=== PATIENT | male | born 1960 | race Caucasian/White ===

== ENCOUNTER 2021-03-15 18:31 | Inpatient (IN) | payer OTHER, SELFPAY ==
--- OUTSIDE RECORDS SUMMARY | 2021-03-15 18:33 | XMS REPORT | Continuity of Care Document ---
:1960 Author Organization [facility] t Address [address] [place] [address] Care Team Providers Name Role Phone Keren CHAUDHRY Attending Clinician Problems This patient has no known problems. Allergies, Adverse Reactions, Alerts This patient has no known allergies or adverse reactions. Medications This patient has no known medications. Procedures This patient has no known procedures. Encounters Start End Encounter Admission Attending Care Care Encounter Source Date/Time Date/Time Type Type Clinicians Facility Department ID 2021-03-14 2021-03-14 Office [facility] [id number] 09:34:02 11:54:04 Visit [facility] [id number] [facility] [id number] Results This patient has no known results.
[2021-03-15 20:17] LABS: Absolute Lymphocytes (CBC) 1.2 K/uL (0.7-4.9); Basophils % 0.5 % (0-1.3); Hematocrit 33.4 % (39.6-49.0); Lymphocytes % 10.3 % (15.3-44.8)
[2021-03-15 20:28] LABS: Protime INR 1.82
[2021-03-15] MEDS ORDERED: NA CHLORIDE 0.9% 2,000 ML ONE (20:31)
[2021-03-15] MEDS ORDERED: THIAMINE 200 MG/2 ML INJ ONE (20:31)
[2021-03-15] MEDS ORDERED: MULTIVITAMINS 10 ML VIAL (INJ) IV ONE (20:32)
[2021-03-15] MEDS ORDERED: FOLIC ACID 5 MG/ML VIAL ONE (20:33)
[2021-03-15 20:38] LABS: ALT/SGPT 29 U/L (12-78); AST/SGOT 41 U/L (15-37); Albumin 2.5 g/dL (3.4-5.0); Alkaline Phosphatase 112 U/L (45-117); BUN Blood Urea Nitrogen 8 mg/dL (7-18); Bicarbonate 30 mmol/L (21-32); Bilirubin Direct 1.9 mg/dL (0-0.2); Bilirubin Total 4.9 mg/dL (0.2-1.0); Glucose Level 178 mg/dL (74-106); NT PRO-BNP 194 pg/mL (<125); Potassium 3.3 mmol/L (3.5-5.1); Protein, Total 7.7 g/dL (6.4-8.2); Sodium Level 138 mmol/L (136-145); Troponin (Emerg Dept Use Only) < 0.02 ng/mL (0.0-0.045)
--- NOTE | 2021-03-15 20:39 | RAD REPORT ---
EXAM DESCRIPTION: USExtrem Venous W Compress Bil03/15/2021 8:30 pm CLINICAL HISTORY: Leg pain COMPARISON: 2017 FINDINGS: The common femoral, superficial femoral, popliteal and posterior tibial veins bilaterally are compressible and demonstrate augmentation. Doppler demonstrates good flow. IMPRESSION: No evidence of deep venous thrombosis involving either lower extremity.
[2021-03-15 21:19] LABS: Platelet Estimate ADEQ
[2021-03-15 21:20] LABS: Blood Morphology Comment NOTED (NOT SEEN); Macrocytosis 1+
--- NOTE | 2021-03-15 21:34 | RAD REPORT ---
EXAM DESCRIPTION: CT - Head C Spine Edmar Thomas - 03/15/2021 9:09 pm CLINICAL HISTORY: Head and neck injury with chest and abdominal pain status post fall. Head and neck pain . TECHNIQUE: Computed axial tomography of the head and cervical spine was obtained Computed axial tomography of the chest, abdomen and pelvis was obtained. 100 cc Isovue-300 was given intravenously coronal and sagittal reconstruction was performed. All CT scans are performed using dose optimization technique as appropriate and may include automated exposure control or mA/KV adjustment according to patient size. COMPARISON: None FINDINGS: An intracranial bleed is not seen. The ventricles are normal in caliber. An extra-axial fl uid collection is not noted. A cervical fracture is not seen. No dislocation is seen. Mild anterior subluxation C4 on C5. Mild pos terior subluxation C5 on C6. Moderate spondylosis involves mid and distal cervical spine. A mediastinal hematoma is not noted. A pleural effusion is not present. A lung contusion is not seen. Pulsation artifact limits the evaluation of the ascending thoracic aorta. The proximal ascending aort a appears to measure 4.9 AP diameter. The liver, spleen, pancreas, adrenals, kidneys and bladder do not demonstrate a traumatic injury. . IMPRESSION: 1. No acute intracranial abnormality is seen 2. A cervical fracture is not visualized. If the patient continues have symptoms to suggest intracran ial/spinal cord pathology then MRI would be recommended. 3. No traumatic injury involving the chest, abdomen or pelvis is seen. 4. Proximal thoracic aorta appears to measure 4.9 centimeters. It is uncertain if this is an accurate measurement secondary to pulsation artifact. It is recommended that the patient have a followup unen hanced CT scan of the chest to confirm if this is the size of the aneurysm
--- NOTE | 2021-03-15 21:35 | RAD REPORT ---
EXAM DESCRIPTION: RAD - Hip Left 2 View - 03/15/2021 9:22 pm CLINICAL HISTORY: Left hip pain status post injury FINDINGS: No fracture or dislocation is seen.
--- NOTE | 2021-03-15 21:35 | RAD REPORT ---
EXAM DESCRIPTION: RAD - Pelvis - 03/15/2021 9:22 pm CLINICAL HISTORY: Pelvic pain status post injury FINDINGS: No fracture or dislocation is seen. Intramedullary evgeny has been placed into the right femur
--- NOTE | 2021-03-15 21:36 | RAD REPORT ---
EXAM DESCRIPTION: Lori Single View03/15/2021 8:07 pm CLINICAL HISTORY: Chest pain COMPARISON: none FINDINGS: The lungs appear clear of acute infiltrate. The heart is normal size. Old left rib fractures IMPRESSION: No acute abnormalities displayed
[2021-03-15 22:08] LABS: Urine Blood Trace-lysed (Negative); Urine Glucose Negative (Negative); Urine Protein Negative (Negative); Urine Specific Gravity 1.015 (1.005-1.030)
[2021-03-15] MEDS ORDERED: POTASSIUM 25 MEQ EFFERV TAB ONE (22:20)
--- NOTE | 2021-03-15 23:31 | ER ---
Nurse's Notes [facility] Name: Hank Musa Age: 60 yrs Sex: Male : 1960 Arrival Date: 03/15/2021 Time: 18:34 Bed 18 Private MD: Diagnosis: Weakness;Repeated falls;Hypokalemia;Alcohol abuse;Superficial injury of head Presentation: 03/15 18:41 Chief complaint: Spouse and/or significant other states: last night he fell head first tw2 on the left side of his head and he has just gone down hill since then. he is inbetween dx. 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 he is unsteady cant stand, extremely dizzy. he sleeps 18-20 hours a day. not eating or drinking well normally for months now. the last 2 weeks its gone down to a few bites of food a day. pts daughter states drastic personality changes as well and wont communicate with us. states he cant hardly stand today independently. that's why we brought him today. he complains of chest pain that he feels like a truck run him over. Coronavirus screen: At this time, the client does not indicate any symptoms associated with coronavirus-19. Ebola Screen: Patient denies travel to an Ebola-affected area in the 21 days before illness onset. Initial Sepsis Screen: Does the patient meet any 2 criteria? HR > 90 bpm. Yes Does the patient have a suspected source of infection? No. Patient's initial sepsis screen is negative. Risk Assessment: Do you want to hurt yourself or someone else? Patient reports no desire to harm self or others. Onset of symptoms was March 15, 2021. 18:41 Method Of Arrival: Wheelchair tw2 18:41 Acuity: TIRSO 2 tw2 Triage Assessment: 18:47 General: Appears ill, Behavior is quiet. Pain: Complains of pain in left shoulder pain. tw2 Historical: - Allergies: 18:47 No Known Allergies; tw2 - Home Meds: 18:53 sertraline 50 mg oral tab 1 tab once daily [Active]; folic acid 1 mg Oral tab 1 tab tw2 once daily [Active]; hydroxyzine HCl 25 mg Oral tab 1 tab 3 times per day [Active]; ferrous sulfate 325 mg (65 mg iron) Oral tab [Active]; lactulose 10 gram/15 mL (15 mL) Oral soln 30 mL once daily [Active]; hydrochlorothiazide 12.5 mg Oral cap 1 cap once daily [Active]; naltrexone 50 mg oral tab 1 tab once daily [Active]; acetaminophen-codeine 300-15 mg Oral tab 1 tab every 4-6 hours [Active]; - PMHx: 18:47 mesothelioma; basal cell carcinoma; tw2 - PSHx: 18:47 femur sx; arm sx; neck sx; Tonsillectomy; tw2 - Immunization history:: Adult Immunizations. - Social history:: Smoking status: Patient reports use of chewing tobacco. Patient uses states "he went from 2 case of beer a day about a year and a half ago to now he drinks maybe a 6 pack, today he hasnt drank anything". - Family history:: not pertinent. Screenin:00 Abuse screen: Denies threats or abuse. Denies injuries from another. Nutritional wh screening: No deficits noted. Tuberculosis screening: No symptoms or risk factors identified. Fall Risk Fall in past 12 months (25 points). Assessment: 19:30 General: Appears in no apparent distress. Behavior is calm, cooperative. Pain: Denies wh pain. Neuro: Level of Consciousness is awake, alert, obeys commands, Oriented to person, place, time, situation, Promotional Representative are equal bilaterally Weakness Gait is unsteady, Speech is normal, Facial symmetry appears normal, Pupils are PERRLA, Intact Reports weakness. Cardiovascular: Heart tones S1 S2. Respiratory: Airway is patent Respiratory effort is even, unlabored, Respiratory pattern is regular, symmetrical, Breath sounds are clear bilaterally. GI: Abdomen is flat, non-distended. : No signs and/or symptoms were reported regarding the genitourinary system. EENT: No signs and/or symptoms were reported regarding the EENT system. Derm: Skin is intact, is healthy with good turgor, Skin is pink, warm \\T\\ dry. normal. Musculoskeletal: Circulation, motion, and sensation intact. 21:00 Reassessment: Patient appears in no apparent distress at this time. No changes from previously documented assessment. Patient and/or family updated on plan of care and expected duration. Pain level reassessed. Patient is alert, oriented x 3, equal unlabored respirations, skin warm/dry/pink. 22:30 Reassessment: Patient appears in no apparent distress at this time. Patient and/or wh family updated on plan of care and expected duration. Pain level reassessed. Patient is alert, oriented x 3, equal unlabored respirations, skin warm/dry/pink. 03/16 00:00 Reassessment: Patient appears in no apparent distress at this time. Patient and/or wh family updated on plan of care and expected duration. Pain level reassessed. Patient is alert, oriented x 3, equal unlabored respirations, skin warm/dry/pink. Provider at bedside explaining POC need for admit. 01:30 Reassessment: Patient appears in no apparent distress at this time. Patient and/or wh family updated on plan of care and expected duration. Pain level reassessed. Patient is alert, oriented x 3, equal unlabored respirations, skin warm/dry/pink. Vital Signs: 03/15 18:41 BP 90 / 51; Pulse 106; Resp 19; Temp 98.6(O); Pulse Ox 98% on R/A; Weight 68.04 kg (R); tw2 Height 5 ft. 8 in. (172.72 cm); 20:30 BP 101 / 63; Pulse 91; Resp 18; Pulse Ox 97% on R/A; wh 22:00 BP 108 / 75; Pulse 102; Resp 18; Pulse Ox 95% on R/A; wh 23:30 BP 122 / 71; Pulse 98; Resp 18; Pulse Ox 96% on R/A; 03/16 01:00 BP 131 / 74; Pulse 95; Resp 18; Pulse Ox 95% on R/A; 03/15 18:41 Body Mass Index 22.81 (68.04 kg, 172.72 cm) tw2 ED Course: 03/15 18:34 Patient arrived in ED. mr 18:44 Triage completed. tw2 18:49 Arm band placed on. tw2 19:15 Mario Valdes MD is Attending Physician. [facility] 19:48 Valentín Salazar, DEMETRIA is Primary Nurse. 20:00 Patient has correct armband on for positive identification. Placed in gown. Bed in low wh position. Call light in reach. Side rails up X 1. telemetry monitor on. Pulse ox on. NIBP on. 20:00 No provider procedures requiring assistance completed. Inserted saline lock: 20 gauge wh in right forearm, using aseptic technique. Blood collected. 20:07 XRAY Chest (1 view) In Process Unspecified. EDMS 20:30 US Extremity Venous W Compression Glynn In Process Unspecified. EDMS 21:09 CT Traumagram (Head C Spine CAP W Con) In Process Unspecified. EDMS 21:22 Pelvis XRAY In Process Unspecified. EDMS 21:22 Hip Left 2 View XRAY In Process Unspecified. EDMS 23:14 Aston Lipscomb DO is Hospitalizing Provider. [facility] 03/16 01:52 Patient admitted, IV remains in place. Administered Medications: 03/15 20:40 Drug: Banana Bag - (NS 0.9% 1000 ml, foLIC Acid 1 mg, Thiamine 100 mg, Multivitamin 1 wh amp) Route: IV; Rate: 125 ml/hr; Site: right forearm; 23:17 Follow up: Response: No adverse reaction; IV Status: Infusion continued upon admission 20:40 Drug: NS 0.9% 1000 ml Route: IV; Rate: 1 bolus; Site: right forearm; 23:17 Follow up: Response: No adverse reaction; IV Status: Completed infusion 20:41 Drug: Thiamine 100 mg Route: IV; Rate: per protocol; Site: right forearm; 23:17 Follow up: Response: No adverse reaction; IV Status: Completed infusion 22:07 Drug: Potassium Effervescent Tablet 25 mEq Route: PO; 23:17 Follow up: Response: No adverse reaction 23:47 Drug: Aspirin Chewable Tablet 162 mg Route: PO; 03/16 02:31 Follow up: Response: No adverse reaction Outcome: 03/15 23:31 Decision to Hospitalize by Provider. [facility] 03/16 01:52 Admitted to Med/surg accompanied by nurse, family with patient, via stretcher, room wh 210, with chart, Report called to Eliezer Sabillon RN Condition: stable Instructed on the need for admit. 02:31 Patient left the ED. Signatures: Dispatcher [employer] Mario Lafleur MD MD cha Rivera, Mary mr Wise, Tara, RN RN tw2 Valentín Salazar RN RN
--- NOTE | 2021-03-15 23:31 | EDPHYS ---
Physician Documentation [facility] Name: Hank Musa Age: 60 yrs Sex: Male : 1960 Arrival Date: 03/15/2021 Time: 18:34 Bed 18 Private MD: ED Physician Mario Valdes HPI: 03/15 20:29 This 60 yrs old Male presents to ER via Wheelchair with complaints of Fall yuki Injury, Breathing Difficulty. 20:29 Details of fall: The patient fell from an upright position, while walking. Onset: The yuki symptoms/episode began/occurred 1 day(s) ago. Associated injuries: The patient sustained upper back injury, injury to the low back, injury to the chest. Severity of symptoms: At their worst the symptoms were mild, moderate, in the emergency department the symptoms are unchanged. The patient has not experienced similar symptoms in the past. Historical: - Allergies: 18:47 No Known Allergies; tw2 - Home Meds: 18:53 sertraline 50 mg oral tab 1 tab once daily [Active]; folic acid 1 mg Oral tab 1 tab tw2 once daily [Active]; hydroxyzine HCl 25 mg Oral tab 1 tab 3 times per day [Active]; ferrous sulfate 325 mg (65 mg iron) Oral tab [Active]; lactulose 10 gram/15 mL (15 mL) Oral soln 30 mL once daily [Active]; hydrochlorothiazide 12.5 mg Oral cap 1 cap once daily [Active]; naltrexone 50 mg oral tab 1 tab once daily [Active]; acetaminophen-codeine 300-15 mg Oral tab 1 tab every 4-6 hours [Active]; - PMHx: 18:47 mesothelioma; basal cell carcinoma; tw2 - PSHx: 18:47 femur sx; arm sx; neck sx; Tonsillectomy; tw2 - Immunization history:: Adult Immunizations. - Social history:: Smoking status: Patient reports use of chewing tobacco. Patient uses states "he went from 2 case of beer a day about a year and a half ago to now he drinks maybe a 6 pack, today he hasnt drank anything". - Family history:: not pertinent. ROS: 20:29 Constitutional: Negative for fever, chills, and weight loss, Eyes: Negative for injury, yuki pain, redness, and discharge, ENT: Negative for injury, pain, and discharge, Neck: Negative for injury, pain, and swelling, Cardiovascular: Negative for chest pain, palpitations, and edema, Respiratory: Negative for shortness of breath, cough, wheezing, and pleuritic chest pain, Abdomen/GI: Negative for abdominal pain, nausea, vomiting, diarrhea, and constipation, : Negative for injury, bleeding, discharge, and swelling, Skin: Negative for injury, rash, and discoloration, Neuro: Negative for headache, weakness, numbness, tingling, and seizure. 20:29 Back: Positive for decreased range of motion, pain at rest, pain with movement. 20:29 MS/extremity: Positive for decreased range of motion, pain, tenderness, of the left hip, left inner thigh and left upper thigh. Exam: 20:29 Constitutional: This is a well developed, well nourished patient who is awake, alert, yuki and in no acute distress. Head/Face: Normocephalic, atraumatic. Eyes: Pupils equal round and reactive to light, extra-ocular motions intact. Lids and lashes normal. Conjunctiva and sclera are non-icteric and not injected. Cornea within normal limits. Periorbital areas with no swelling, redness, or edema. ENT: Nares patent. No nasal discharge, no septal abnormalities noted. Tympanic membranes are normal and external auditory canals are clear. Oropharynx with no redness, swelling, or masses, exudates, or evidence of obstruction, uvula midline. Mucous membranes moist. Neck: Trachea midline, no thyromegaly or masses palpated, and no cervical lymphadenopathy. Supple, full range of motion without nuchal rigidity, or vertebral point tenderness. No Meningismus. Chest/axilla: Normal chest wall appearance and motion. Nontender with no deformity. No lesions are appreciated. Cardiovascular: Regular rate and rhythm with a normal S1 and S2. No gallops, murmurs, or rubs. Normal PMI, no JVD. No pulse deficits. Respiratory: Lungs have equal breath sounds bilaterally, clear to auscultation and percussion. No rales, rhonchi or wheezes noted. No increased work of breathing, no retractions or nasal flaring. Abdomen/GI: Soft, non-tender, with normal bowel sounds. No distension or tympany. No guarding or rebound. No evidence of tenderness throughout. Skin: Warm, dry with normal turgor. Normal color with no rashes, no lesions, and no evidence of cellulitis. 20:29 ECG was reviewed by the Attending Physician. 20:29 Back: pain, that is mild, that is moderate, ROM is painful, normal spinal alignment noted, CVA tenderness, is absent, muscle spasm, is not present. Vital Signs: 18:41 BP 90 / 51; Pulse 106; Resp 19; Temp 98.6(O); Pulse Ox 98% on R/A; Weight 68.04 kg (R); tw2 Height 5 ft. 8 in. (172.72 cm); 20:30 BP 101 / 63; Pulse 91; Resp 18; Pulse Ox 97% on R/A; wh 22:00 BP 108 / 75; Pulse 102; Resp 18; Pulse Ox 95% on R/A; wh 23:30 BP 122 / 71; Pulse 98; Resp 18; Pulse Ox 96% on R/A; 03/16 01:00 BP 131 / 74; Pulse 95; Resp 18; Pulse Ox 95% on R/A; 03/15 18:41 Body Mass Index 22.81 (68.04 kg, 172.72 cm) tw2 MDM: 03/15 19:15 Patient medically screened. yuki 20:34 Differential diagnosis: abrasion, closed head injury, contusion, fracture, multiple yuki trauma, sprain, strain. Data reviewed: vital signs, nurses notes, lab test result(s), EKG, radiologic studies, CT scan, plain films. Data interpreted: color television console monitor: rate is 98 beats/min, rhythm is regular, Pulse oximetry: on room air is 98 %. Test interpretation: by ED physician or midlevel provider: ECG, plain radiologic studies. Counseling: I had a detailed discussion with the patient and/or guardian regarding: the historical points, exam findings, and any diagnostic results supporting the discharge/admit diagnosis, lab results, radiology results. 03/15 19:52 Order name: Basic Metabolic Panel 03/15 19:52 Order name: CBC with Diff 03/15 19:52 Order name: LFT's 03/15 19:52 Order name: Magnesium; Complete Time: 21:20 03/15 19:52 Order name: NT PRO-BNP; Complete Time: 21:20 06/10 19:52 Order name: PT-INR; Complete Time: 21:20 03/15 19:52 Order name: Troponin (emerg Dept Use Only); Complete Time: 21:20 03/15 19:53 Order name: Basic Metabolic Panel; Complete Time: 20:39 [facility] 03/15 19:53 Order name: CBC with Automated Diff; Complete Time: 21:35 [facility] 03/15 19:53 Order name: Liver (Hepatic) Function; Complete Time: 20:39 [facility] 10 20:20 Order name: Manual Differential; Complete Time: 21:35 [facility] 03/15 22:08 Order name: Urine Dipstick-Ancillary [facility] 03/15 22:44 Order name: SARS-COV-2 RT PCR; Complete Time: 22:53 [facility] 03/15 19:52 Order name: XRAY Chest (1 view); Complete Time: 21:45 03/15 19:52 Order name: EKG; Complete Time: :53 03/15 19:52 Order name: Cardiac monitoring; Complete Time: :53 03/15 19:52 Order name: EKG - Nurse/Tech; Complete Time: :53 03/15 19:52 Order name: IV Saline Lock; Complete Time: :53 03/15 20:03 Order name: US Extremity Venous W Compression Glynn; Complete Time: 21:20 [facility] 03/15 20:03 Order name: CT Traumagram (Head C Spine CAP W Con); Complete Time: 21:35 [facility] 03/15 20:28 Order name: Pelvis XRAY; Complete Time: 21:45 [facility] 03/15 20:28 Order name: Hip Left 2 View XRAY; Complete Time: 21:45 [facility] 03/15 23:31 Order name: AMMONIA [facility] 03/15 23:32 Order name: Ammonia [facility] 03/15 19:52 Order name: Labs collected and sent; Complete Time: :53 03/15 19:52 Order name: O2 Per Protocol; Complete Time: : 03/15 19:52 Order name: O2 Sat Monitoring; Complete Time: :53 03/15 20:03 Order name: Urine Dipstick-Ancillary (obtain specimen); Complete Time: 22:07 [facility] EC:29 Rate is 92 beats/min. Rhythm is regular. MT interval is normal. QRS interval is normal. uyki QT interval is prolonged at 430 msec. No Q waves. T waves are Normal. ST Segment is depressed in leads II, III, aVF. Clinical impression: NSR w/ Non-specific ST/T Changes. Interpreted by me. Reviewed by me. Administered Medications: 20:40 Drug: Banana Bag - (NS 0.9% 1000 ml, foLIC Acid 1 mg, Thiamine 100 mg, Multivitamin 1 wh amp) Route: IV; Rate: 125 ml/hr; Site: right forearm; 23:17 Follow up: Response: No adverse reaction; IV Status: Infusion continued upon admission 20:40 Drug: NS 0.9% 1000 ml Route: IV; Rate: 1 bolus; Site: right forearm; 23:17 Follow up: Response: No adverse reaction; IV Status: Completed infusion 20:41 Drug: Thiamine 100 mg Route: IV; Rate: per protocol; Site: right forearm; 23:17 Follow up: Response: No adverse reaction; IV Status: Completed infusion 22:07 Drug: Potassium Effervescent Tablet 25 mEq Route: PO; 23:17 Follow up: Response: No adverse reaction 23:47 Drug: Aspirin Chewable Tablet 162 mg Route: PO; 03/16 02:31 Follow up: Response: No adverse reaction Disposition: 03/15/21 23:31 Hospitalization ordered by Aston Lipscomb for Observation. Preliminary diagnosis are Weakness, Repeated falls, Hypokalemia, Alcohol abuse, Superficial injury of head. - Bed requested for Telemetry/MedSurg (observation). - Status is Observation. - Condition is Fair. - Problem is new. - Symptoms have improved. Signatures: Dispatcher [employer] EDMN Mario Valdes MD MD cha Attema, Lee, HOUSEKEEPER CAREGIVER-C HOUSEKEEPER CAREGIVER-Cla1 Michelle Simon, RN RN Lynn Farrell, DEMETRIA RN tw2 Valentín Salazar RN RN Corrections: (The following items were deleted from the chart) 03/15 21:37 20:04 CORONAVIRUS+MR.LAB.BRZ ordered. [facility] 03/16 01:08 03/15 23:31 Hospitalization Ordered by Aston Lipscomb DO for Observation. Preliminary cg diagnosis is Weakness; Repeated falls; Hypokalemia; Alcohol abuse; Superficial injury of head. Bed requested for Telemetry/MedSurg (observation). Status is Observation. Condition is Fair. Problem is new. Symptoms have improved. yuki 03/16 02:31 01:08 03/15/2021 23:31 Hospitalization Ordered by Aston Lipscomb DO for Observation. wh Preliminary diagnosis is Weakness; Repeated falls; Hypokalemia; Alcohol abuse; Superficial injury of head. Bed requested for Telemetry/MedSurg (observation). Status is Observation. Condition is Fair. Problem is new. Symptoms have improved. cg
[2021-03-15] MEDS ORDERED: ASPIRIN 81 MG CHEWABLE TABLET ONE (23:58)
--- NOTE | 2021-03-16 01:13 | P.HP ---
Certification for Inpatient Patient admitted to: Observation With expected LOS: <2 Midnights Patient will require the following post-hospital care: None Practitioner: I am a practitioner with admitting privileges, knowledge of patient current condition, hospital course, and medical plan of care. Services: Services provided to patient in accordance with Admission requirements found in Title 42 Section 412.3 of the Code of Federal Regulations Patient History Date of Service: 03/15/21 Primary Care Provider: Samy martines Reason for admission: Altered mental status, falls History of Present Illness: 60-year-old male with history of chronic alcohol abuse, cirrhosis of the liver, hypertension, frequent falls presents emergency department for weakness, confusion, frequent falls. states that patient has had problems over the course of the last 2-3 years but significantly worse over the course of the last couple of months, patient with very frequent falls, alterations in mood and aggression. Patient now frequently falling, very unsteady gait. Patient evaluated in the emergency department, labs significant for white blood cell count 11.7 hemoglobin 9.5 hematocrit 33.4 MCV 107.7 sodium 3.3 creatinine 1.43 GFR 51, no labs available for comparison urinalysis negative for signs of infection, CT trauma gram negative for any acute findings DVT studies negative for bilateral lower extremities pelvis and hip x-rays negative for any acute findings, chest x-ray unremarkable. Patient still extremely unsteady on his feet, weak and not completely at baseline mental status per his , ED provider wishes to admit for further evaluation and management. Allergies No Known Allergies Allergy (Unverified 01/14/17 17:26) - Past Medical/Surgical History -: Alcoholic Cirrhosis of the liver -: Hypertension -: Right lower extremity surgery Psychosocial/ Personal History: Unemployed, disabled, lives with his - Family History Mother -: Cancer Father -: Heart disease - Social History Smoking Status: Never smoker Alcohol use: Yes CD- Drugs: No Caffeine use: No Place of Residence: Home Review of Systems General: Weakness, Malaise Neurological: Weakness, Incoordination, Confusion, As per HPI Physical Examination - Physical Exam General: Alert, In no apparent distress, Oriented x3 HEENT: Atraumatic, PERRLA, Mucous membr. moist/pink, Abnormal EOM (Horizontal nystagmus noted), Scleral icterus Neck: Supple, 2+ carotid pulse no bruit, No LAD Respiratory: Clear to auscultation bilaterally, Normal air movement Cardiovascular: Regular rate/rhythm, Normal S1 S2 Gastrointestinal: Normal bowel sounds, No tenderness Musculoskeletal: No tenderness Integumentary: No rashes Neurological: Normal speech, Normal strength at 5/5 x4 extr, Normal tone, Abnormal gait (Unsteady gait), Abnormal affect - Studies Laboratory Data (last 24 hrs) 03/15/21 19:35: PT 21.0 H, INR 1.82 03/15/21 19:35: WBC 11.70 H, Hgb 11.5 L, Hct 33.4 L, Plt Count 126 L 03/15/21 19:35: Sodium 138, Potassium 3.3 L, BUN 8, Creatinine 1.43 H, Glucose 178 H, Magnesium 2.0, Total Bilirubin 4.9 H, AST 41 H, ALT 29, Alkaline Phosphatase 112 Assessment and Plan - Plan Assessment Altered mental status, weakness, frequent falls likely secondary to long-term use of alcohol with alcoholic cirrhosis of the liver Acute kidney injury Hypertension Plan Altered mental status, weakness, frequent falls likely secondary to long-term use of alcohol with alcoholic cirrhosis of the liver: Continue with oral thiamine, folic acid, IV fluids. Physical therapy consulted, neurology consulted will obtain MRI stroke protocol to rule out additional causes. Patient reports he still drinks 1-6 beers per day, need to monitor for signs of alcohol withdrawal and provide medications as needed. Patient reports that for many years use to drink a case of beer per day but this stopped about 2 years ago. DVT prophylaxis Lovenox 40 mg subcutaneous once daily. Acute kidney injury: Continue with IV fluids overnight, recheck labs in the morning, consult nephrology as necessary. Likely related to dehydration, chronic alcohol abuse. Hypertension: Obtain and continue home medications as appropriate adjust as necessary Discharge Plan: Home Plan to discharge in: 24 Hours - Advance Directives Does patient have a Living Will: No Does patient have a Durable POA for Healthcare: No - Code Status/Comfort Care Code Status Assessed: Yes (Full code) Critical Care: No Time Spent Managing Pts Care (In Minutes): 55
[2021-03-16] MEDS ORDERED: NA CHLORIDE 0.9% 1,000 ML IV SCH (02:21)
[2021-03-16] MEDS ORDERED: ONDANSETRON 4 MG/2 ML VIAL IV PRN (02:21)
[2021-03-16 02:43] VITALS: BMI 21.7
[2021-03-16 03:44] VITALS: O2SAT 96
[2021-03-16 06:05] LABS: Absolute Lymphocytes (CBC) 2.8 K/uL (0.7-4.9); Basophils % 1.9 % (0-1.3); Hematocrit 29.9 % (39.6-49.0); Lymphocytes % 19.2 % (15.3-44.8); MPV 8.8 fL (7.6-11.3)
--- NOTE | 2021-03-16 06:44 | P.DS ---
Admission Date: 03/16/21 Discharge Date: 03/16/21 Primary Care Provider: [facility] Disposition: ROUTINE DISCHARGE Reason for Admission: Altered mental status, falls Consultations: Neurology-Dr. Villavicencio Procedures: COVID: Negative MRI Brain: FINDINGS: Mild signal within periventricular, deep and subcortical white matter probably ischemic changes secondary to small vessel disease The ventricles are normal in caliber. Diffusion-weighted/ ADC mapping sequences do not demonstrate evidence of an acute infarction. No abnormal enhancement within the brain is seen. An extra-axial fluid collection is not noted. Prominent cerebral atrophy Fluid within the sinuses/mastoids is not seen IMPRESSION: No acute intracranial abnormality displayed Prominent cerebral atrophy MRA Brain: COMPARISON: None. TECHNIQUE: Magnetic resonance angiogram was performed. 3D MIPS reconstruction performed FINDINGS: The anterior cerebral, middle cerebral, posterior cerebral, distal internal carotid and basilar arteries do not demonstrate a significant stenosis. An aneurysm is not displayed. IMPRESSION: Unremarkable MRA brain. MRA Neck: FINDINGS: Mild plaque within the common carotid, internal carotid and external carotid arteries. A significant stenosis is not seen. No aneurysm. No evidence of vertebral dissection. IMPRESSION: Mild plaque in the carotid arteries NASCET criteria used. Mild 0-49% stenosis Moderate 50-69% stenosis Severe 70-99% stenosis ECHO: obtained Carotid doppler: obtained Ct Scan: COMPARISON: None FINDINGS: An intracranial bleed is not seen. The ventricles are normal in caliber. An extra-axial fluid collection is not noted. A cervical fracture is not seen. No dislocation is seen. Mild anterior subluxation C4 on C5. Mild posterior subluxation C5 on C6. Moderate spondylosis involves mid and distal cervical spine. A mediastinal hematoma is not noted. A pleural effusion is not present. A lung contusion is not seen. Pulsation artifact limits the evaluation of the ascending thoracic aorta. The proximal ascending aorta appears to measure 4.9 AP diameter. The liver, spleen, pancreas, adrenals, kidneys and bladder do not demonstrate a traumatic injury. . IMPRESSION: 1. No acute intracranial abnormality is seen 2. A cervical fracture is not visualized. If the patient continues have symptoms to suggest intracranial/spinal cord pathology then MRI would be recommended. 3. No traumatic injury involving the chest, abdomen or pelvis is seen. 4. Proximal thoracic aorta appears to measure 4.9 centimeters. It is uncertain if this is an accurate measurement secondary to pulsation artifact. It is recommended that the patient have a followup unenhanced CT scan of the chest to confirm if this is the size of the aneurysm Venous doppler: COMPARISON: 2017 FINDINGS: The common femoral, superficial femoral, popliteal and posterior tibial veins bilaterally are compressible and demonstrate augmentation. Doppler demonstrates good flow. IMPRESSION: No evidence of deep venous thrombosis involving either lower extremity. Xray: FINDINGS: No fracture or dislocation is seen. Intramedullary evgeny has been placed into the right femur Medical Problem List: Altered mental status, weakness, frequent falls secondary to acute renal injury likely dehydration complicated with alcoholic liver cirrhosis Hypertension Depression Chronic pain GERD Anemia of chronic disease Brief History of Present Illness: 60-year-old male with history of chronic alcohol abuse, cirrhosis of the liver, hypertension, frequent falls presents emergency department for weakness, confusion, frequent falls. states that patient has had problems over the course of the last 2-3 years but significantly worse over the course of the last couple of months, patient with very frequent falls, alterations in mood and aggression. Patient now frequently falling, very unsteady gait. Patient evaluated in the emergency department, labs significant for white blood cell count 11.7 hemoglobin 9.5 hematocrit 33.4 MCV 107.7 sodium 3.3 creatinine 1.43 GFR 51, no labs available for comparison urinalysis negative for signs of infection, CT trauma gram negative for any acute findings DVT studies negative for bilateral lower extremities pelvis and hip x-rays negative for any acute findings, chest x-ray unremarkable. Patient was admitted for further evaluation and treatment. Hospital Course: Patient presented with altered mental status, weakness and frequent falls. Patient with underlying history of alcoholic cirrhosis of the liver. Patient still drinks. Patient was admitted for further evaluation and treatment. This all likely stems from acute renal injury likely from dehydration complicated with his liver cirrhosis. Initial CT traumagram showed no acute fracture. Patient was given IV fluids with improvement. Renal function now back to baseline. Alcohol history obtained from . Patient has decreased his alcohol intake from about 2 cases per day to about less than a pack-a-day. His GI specialists has tried to taper his alcohol use. Patient is seen by GI specialist for his cirrhosis. MRI brain unremarkable. MRA brain unremarkable. Patient worked with physical therapy. Physical therapy ambulated the patient well. Physical therapy recommends walker at home. Physical therapy also recommends a ramp to the house in the future. Fall precautions to be continued. Care discussed with patient and family. Patient improved with IV fluids. Patient appears to be back to his baseline. Patient has mild tremor. At discharge will recommend to continue multi vitamin daily, folic acid 1 mg daily and thiamine 100 mg daily. Patient will continue with lactulose twice daily but may hold if with increase diarrhea greater then 3 per day. Recommend to continue to wean off alcohol entirely but slowly. Fall precautions to continue. Recommend to follow up with GI as an outpatient to further address. Will provide information to establish care locally with a physician to continue his care. Care address in detail with patient and . Patient with history of hypertension. Patient takes hydrochlorothiazide at home. Hydrochlorothiazide has been discontinued due to hypokalemia and acute renal injury. Blood pressure stable off medication. Recommend to discontinue hydrochlorothiazide at discharge. Recommend to monitor blood pressure daily. Maintain blood pressure less than 130/80. If blood pressure remains above 140/90 then the patient may require medication. Will recommend not using hydrochlorothiazide. Patient can follow up with his PCP to consider other option if medication needed. For now no need for medication for Hypertension is required. Patient with underlying depression. At discharge patient will continue with his medication-Zoloft 50 mg daily. Patient with GERD. Will recommend to continue Protonix 40 mg daily. Patient with anemia chronic disease and iron deficiency. At discharge patient may continue with iron supplementation. Recommend to recheck lab-CBC in 2-4 weeks to monitor stability. Patient has been taking naltrexone for alcohol withdrawal. I will recommend to discontinue this as this is not indicated for patients with liver failure. R ecommend to DC Naltrexone at discharge. Vital Signs/Physical Exam: Temp Pulse Resp BP Pulse Ox 99.1 F 85 18 124/70 96 03/16/21 04:00 03/16/21 04:00 03/16/21 04:00 03/16/21 04:00 03/16/21 04:00 General: Alert, In no apparent distress, Oriented x3, Cooperative HEENT: Atraumatic Neck: Supple Respiratory: Clear to auscultation bilaterally, Normal air movement Cardiovascular: Normal pulses, Regular rate/rhythm Gastrointestinal: Normal bowel sounds, No ascites, No tenderness, No masses, No rebound, No guarding Musculoskeletal: No erythema, No tenderness, No warmth Neurological: Normal speech, Normal strength at 5/5 x4 extr, Normal tone, Normal affect, Other (Mild tremor noted with extension of arms. Patient ambulated well with physical therapy and walker.) Laboratory Data at Discharge: WBC 14.40 K/uL (4.3-10.9) H D 03/16/21 05:47 Hgb 10.3 g/dL (13.6-17.9) L 03/16/21 05:47 Hct 29.9 % (39.6-49.0) L 03/16/21 05:47 Plt Count 122 K/uL (152-406) L 03/16/21 05:47 PT 21.0 SECONDS (9.5-12.5) H 03/15/21 19:35 INR 1.82 03/15/21 19:35 Sodium 138 mmol/L (136-145) 03/15/21 19:35 Potassium 3.3 mmol/L (3.5-5.1) L 03/15/21 19:35 BUN 8 mg/dL (7-18) 03/15/21 19:35 Creatinine 1.43 mg/dL (0.55-1.3) H 03/15/21 19:35 Glucose 178 mg/dL (74-106) H 03/15/21 19:35 Magnesium 2.0 mg/dL (1.8-2.4) 03/15/21 19:35 Total Bilirubin 4.9 mg/dL (0.2-1.0) H 03/15/21 19:35 AST 41 U/L (15-37) H 03/15/21 19:35 ALT 29 U/L (12-78) 03/15/21 19:35 Alkaline Phosphatase 112 U/L (45-117) 03/15/21 19:35 Home Medications: Docosahexaenoic Acid [ Dha] 200 mg PO DAILY 03/16/21 Ferrous Sulfate [Iron] 325 mg PO DAILY 03/16/21 Folic Acid 1 mg PO DAILY 03/16/21 Hydroxyzine HCl [Atarax] 10 mg PO Q6HP PRN 03/16/21 Lactulose 20 gm PO BID 03/16/21 Pantoprazole [Protonix Tab] 40 mg PO DAILY #30 tab 03/16/21 Sertraline [Zoloft*] 50 mg PO DAILY 03/16/21 Thiamine HCl 100 mg PO DAILY #90 tablet 03/16/21 New Medications: Pantoprazole [Protonix Tab] 40 mg PO DAILY #30 tab Thiamine HCl 100 mg PO DAILY #90 tablet Physician Discharge Instructions: Patient presented with altered mental status, weakness and frequent falls. Patient with underlying history of alcoholic cirrhosis of the liver. Patient still drinks. Patient was admitted for further evaluation and treatment. This all likely stems from acute renal injury likely from dehydration complicated with his liver cirrhosis. Initial CT traumagram showed no acute fracture. Patient was given IV fluids with improvement. Renal function now back to baseline. Alcohol history obtained from . Patient has decreased his alcohol intake from about 2 cases per day to about less than a pack-a-day. His GI specialists has tried to taper his alcohol use. Patient is seen by GI specialist for his cirrhosis. MRI brain unremarkable. MRA brain unremarkable. Patient worked with physical therapy. Physical therapy ambulated the patient well. Physical therapy recommends walker at home. Physical therapy also recommends a ramp to the house in the future. Fall precautions to be continued. Care discussed with patient and family. Patient improved with IV fluids. Patient appears to be back to his baseline. Patient has mild tremor. At discharge will recommend to continue multi vitamin daily, folic acid 1 mg daily and thiamine 100 mg daily. Patient will continue with lactulose twice daily but may hold if with increase diarrhea greater then 3 per day. Recommend to continue to wean off alcohol entirely but slowly. Fall precautions to continue. Recommend to follow up with GI as an outpatient to further address. Will provide information to establish care locally with a physician to continue his care. Care address in detail with patient and . Patient with history of hypertension. Patient takes hydrochlorothiazide at home. Hydrochlorothiazide has been discontinued due to hypokalemia and acute renal injury. Blood pressure stable off medication. Recommend to discontinue hydrochlorothiazide at discharge. Recommend to monitor blood pressure daily. Maintain blood pressure less than 130/80. If blood pressure remains above 140/90 then the patient may require medication. Will recommend not using hydrochlorothiazide. Patient can follow up with his PCP to consider other option if medication needed. For now no need for medication for Hypertension is required. Patient with underlying depression. At discharge patient will continue with his medication-Zoloft 50 mg daily. Patient with GERD. Will recommend to continue Protonix 40 mg daily. Patient with anemia chronic disease and iron deficiency. At discharge patient may continue with iron supplementation. Recommend to recheck lab-CBC in 2-4 weeks to monitor stability. Patient has been taking naltrexone for alcohol withdrawal. I will recommend to discontinue this as this is not indicated for patients with liver failure. Recommend to DC Naltrexone at discharge. Diet: AHA Activity: Fall precautions Followup: NITISH TALBERT [Primary Care Provider] - Time spent managing pt's care (in minutes): 55
[2021-03-16 07:14] LABS: ALT/SGPT 25 U/L (12-78); Alkaline Phosphatase 95 U/L (45-117); BUN Blood Urea Nitrogen 7 mg/dL (7-18); Bicarbonate 31 mmol/L (21-32); Bilirubin Total 3.6 mg/dL (0.2-1.0); Glucose Level 120 mg/dL (74-106); HDL Cholesterol 37 mg/dL (40-60); LDL Cholesterol, Calculated 52 (<130); Protein, Total 6.5 g/dL (6.4-8.2); Sodium Level 142 mmol/L (136-145); Thyroid Stimulating Hormone 0.546 uIU/mL (0.360-3.740)
[2021-03-16 07:38] LABS: AST/SGOT 38 U/L (15-37); Magnesium 1.9 mg/dL (1.8-2.4)
[2021-03-16 08:10] LABS: Folic Acid, (Folate) > 20.0 ng/mL (3.1-17.5)
[2021-03-16] MEDS ORDERED: DOCOSAHEXAENOIC ACID 200 MG PO SCH (09:00)
[2021-03-16] MEDS ORDERED: LACTULOSE 20 GM/30 ML UCUP PO SCH (09:00)
[2021-03-16] MEDS ORDERED: ENOXAPARIN 40 MG/0.4 ML SQ SCH (09:00)
[2021-03-16] MEDS ORDERED: FOLIC ACID 1 MG TABLET PO SCH (09:00)
[2021-03-16] MEDS ORDERED: POTASSIUM CL SA 10 MEQ TAB PO ONE (09:00)
[2021-03-16] MEDS ORDERED: THIAMINE HCL 100 MG TABLET PO SCH (09:00)
[2021-03-16] MEDS ORDERED: FERROUS SULFATE 325 MG TAB PO SCH (09:00)
[2021-03-16] MEDS ORDERED: CONTRAVE PO SCH (09:00)
[2021-03-16] MEDS ORDERED: SERTRALINE HCL 50 MG TAB PO SCH (09:00)
--- NOTE | 2021-03-16 09:32 | RAD REPORT ---
EXAM DESCRIPTION: MRI - Brain W/Wo Cont - 03/16/2021 8:12 am CLINICAL HISTORY: Vertigo COMPARISON: head CT March 15, 2021 TECHNIQUE: Axial, sagittal, and coronal magnetic images of the brain were obtained. 16 cc MultiHance administered intravenously FINDINGS: Mild signal within periventricular, deep and subcortical white matter probably ischemic c hanges secondary to small vessel disease The ventricles are normal in caliber. Diffusion-weighted/ ADC mapping sequences do not demonstrate evidence of an acute infarction. No abnormal enhancement within the brain is seen. An extra-axial fluid collection is not noted. Prominent cerebral atrophy Fluid within the sinuses/mastoids is not seen IMPRESSION: No acute intracranial abnormality displayed Prominent cerebral atrophy
--- NOTE | 2021-03-16 09:33 | RAD REPORT ---
EXAM DESCRIPTION: MRI - MRA Neck W/Wo Cont - 03/16/2021 8:12 am CLINICAL HISTORY: Vertigo COMPARISON: None. TECHNIQUE: Magnetic resonance angiogram of the neck was performed. 14 cc MultiHance was administered intravenously. 3D MIPS reconstruction performed FINDINGS: Mild plaque within the common carotid, internal carotid and external carotid arteries. A s ignificant stenosis is not seen. No aneurysm. No evidence of vertebral dissection. IMPRESSION: Mild plaque in the carotid arteries NASCET criteria used. Mild 0-49% stenosis Moderate 50-69% stenosis Severe 70-99% stenosis
--- NOTE | 2021-03-16 09:35 | RAD REPORT ---
EXAM DESCRIPTION: MRI - MRA Head Wo Cont - 03/16/2021 8:10 am CLINICAL HISTORY: Vertigo COMPARISON: None. TECHNIQUE: Magnetic resonance angiogram was performed. 3D MIPS reconstruction performed FINDINGS: The anterior cerebral, middle cerebral, posterior cerebral, distal internal carotid and ba silar arteries do not demonstrate a significant stenosis. An aneurysm is not displayed. IMPRESSION: Unremarkable MRA brain.
[2021-03-16] MEDS ORDERED: NA CHLORIDE 0.9% 250 ML IV ONE (11:58)
[2021-03-16 13:02] VITALS: BP 110/66; TEMP 99.2
[2021-03-16] MEDS ORDERED: ENSURE CLEAR 200 ML CAN PO SCH (13:15)
--- NOTE | 2021-03-16 18:56 | CON ---
Reason For Consultation: Consultation called because of altered mental status and falls. History Of Present Illness: Mr. Musa is a 60-year-old right-handed patient with a lo ng history of heavy alcohol abuse where he would regularly drink 2 packs of beer, perhaps 24 daily an d over the last 2 months and perhaps half has been cutting back and reportedly is on 6 beers daily. However, for several months, he has had unsteady gait, tendency to falls, problems with confusion, di sorientation, and comes in with worsening confusion, pulse, tremors. His creatinine was elevated to 1.43. He had elevated liver function studies, mild anemia with decreased hemoglobin, mildly elevated white blood cell count and negative head CT scan for acute ischemic or hemorrhagic change. However, he had prominent diffuse atrophy. Brain MRI subsequently confirmed the presence of prominent diffus e cerebral cortical atrophy and the patient without acute ischemic or hemorrhagic change. No evidenc e of hydrocephalus or other abnormalities. He was given hydration and has an improved somewhat but s till has tremors in the arms and legs. He was given thiamine, folic acid, along with a multivitamin. Past Medical History: As noted in addition to hypertension and prior hospital evaluation for swellin g of the right lower extremity and had surgery in the right lower extremity. Social History: The patient is living with his . He is disabled and unemployed. Family History: Positive for cancer in mother. Heart disease in father. Allergies: NO KNOWN DRUG ALLERGIES. Social History: As indicated, very heavy alcohol use. No recent use of tobacco and no IV drug use. Review of Systems: The patient has had diffuse weakness, incoordination, confusion, disorientation and tremors in the up per and lower extremities. Otherwise, no fevers or chills. Some myalgias, arthralgias. No rash. N o headache. No focal deficits on the face, arm, leg, and no other positives on systems review. Physical Examination: Vital Signs: Blood pressure 110/66, pulse 80, respiratory rate 16, temperature 99.5 T-max, saturatio n 97% room air. General: Mr. Musa is resting in bed. He does have some activity-related tremors in the arms a nd the legs that subside somewhat with movement is flexion-extension type tremor. HEENT: Otherwise, he is normocephalic, atraumatic. His sclerae are anicteric. Oropharynx is moist. Neck: Supple. Chest: Clear. Heart: Regular. Extremities: He does have some mild to moderate edema in the lower extremities. Neurological: Otherwise, he is alert, follows commands appropriately, oriented to person, situation, and no obvious focal deficits on cranial nerves. Coordination, he has some ataxia noted and dysmetr ia and reflexes are symmetric and strength is symmetric in the upper and lower extremities and gait, he will be ambulated with the physical therapist and actually was able to ambulate without assistive device, did hold his IV pole and cover the upper 150 feet, just required some cuing to continue walki ng. Assessment: Mr. Musa is a 60-year-old patient with a heavy chronic alcohol use who has evidenc e of diffuse brain atrophy, more prominent than it should be for his age. He also has significant tr emors likely related to his alcohol use and liver dysfunction. He was dehydrated on admission, has b een rehydrated. However, the patient is at risk of significant alcohol related cognitive deficits, d ifficulty with his coordination, balance, gait as his alcoholism is likely left permanent deficits. Plan: The patient may be discharged home with followup with a primary care physician to help manage his tobacco, alcohol. He is otherwise okay to be discharged and does not require additional neurological workup. JANNETTE/CHENG Voice ID: [id number] Report ID: [id number]
--- NOTE | 2021-03-19 09:28 | EEG ---
CHART: [id number] TEST ID#: [id number] DATE OF STUDY: 03/16/2021 THE EEG WAS RECORDED PORTABLE IN THE PATIENT'S ROOM ON A 17 CHANNEL MACHINE. ELECTRODES WERE APPLIED IN THE USUAL MANNER USING THE INTERNATIONAL 10-20 SYSTEM. THE WAKING BACKGROUND RHYTHM IN THIS RECORD CONSISTS OF FAIRLY WELL DEVELOPED AND FAIRLY WELL ORGANIZED WAVES OF 8.5 HZ., MAXIMAL IN THE POSTERIOR HEAD REGIONS WHICH ATTENUATE NORMALLY WITH EYE OPENING. MODERATE VOLTAGE 1.5-3 HZ ACTIVITY IS EXPRESSED IN THE FRONTAL REGIONS. THERE ARE NO FOCAL OR LATERALIZING FEATURES. NO EPILEPTIFORM ACTIVITY APPEARS. SLEEP DID NOT OCCUR. IN ADDITION NORMAL SLEEP PATTERNS ARE PRESENT. HYPERVENTILATION WAS NOT PERFORMED. PHOTIC STIMULATION PRODUCED NO DRIVING BILATERALLY. IMPRESSION: THIS IS A MILD TO MODERATE ABNORMAL ROUTINE AWAKE AND ASLEEP EEG DUE TO A MILD TO MODERATELY SLOW BACKGROUND. THIS IS A NON-SPECIFIC FINDING INDICATING THE PRESENCE OF A MILD TO MODERATE DIFFUSE DISTURBANCE IN CEREBRAL FUNCTION.
== END 2021-03-16 14:19 | disposition home or self-care (01) | DRG 683 ==
LOC: ER 18:31 → 2ND 03-16 00:18 → OBSVTOIN 03-16 07:26
PROVIDERS: ADMIT Family Medicine; ATTEND Family Medicine
DX: N17.9 Acute kidney failure, unspecified (principal); F10.139 Alcohol abuse with withdrawal, unspecified; K70.30 Alcoholic cirrhosis of liver without ascites; F17.220 Nicotine dependence, chewing tobacco, uncomplicated; I10 Essential (primary) hypertension; E86.0 Dehydration; F32.9 Major depressive disorder, single episode, unspecified; K21.9 Gastro-esophageal reflux disease without esophagitis; G89.29 Other chronic pain; M54.5 Low back pain; D63.8 Anemia in other chronic diseases classified elsewhere; G31.9 Degenerative disease of nervous system, unspecified; E87.6 Hypokalemia; D50.9 Iron deficiency anemia, unspecified; R25.1 Tremor, unspecified; W18.30XA Fall on same level, unspecified, initial encounter; Z79.899 Other long term (current) drug therapy; Z56.0 Unemployment, unspecified; Z91.81 History of falling; Z20.822 Contact with and (suspected) exposure to COVID-19
CPT/HCPCS: 36415; 70450; 70544; 70549; 70553; 71045; 71260; 72125; 72170; 74177; 80048; 80053; 80061; 80076; 81003; 82140; 82746; 83735; 83880; 84425; 84439; 84443; 84484; 85025; 85610; 93005; 93970; 95816; 96365; 96366; 97116; 97161; 99285; A9577; G0378; J1650; J3411; J7030; Q9967; U0003

== ENCOUNTER 2021-03-17 15:54 | Emergency (ER) | payer SELFPAY ==
[2021-03-17] MEDS ORDERED: NA CHLORIDE 0.9% 500 ML ONE (16:35)
[2021-03-17 17:18] LABS: BUN Blood Urea Nitrogen 3 mg/dL (7-18); Bicarbonate 27 mmol/L (21-32); Glucose Level 96 mg/dL (74-106); Sodium Level 140 mmol/L (136-145)
[2021-03-17 17:28] LABS: Potassium 2.9 mmol/L (3.5-5.1)
--- NOTE | 2021-03-17 17:31 | EDPHYS ---
Physician Documentation [facility] Name: Hank Musa Age: 60 yrs Sex: Male : 1960 Arrival Date: 03/17/2021 Time: 15:54 Bed 13 Private MD: ED Physician Dave Lazcano HPI: 03/17 16:08 This 60 yrs old Male presents to ER via EMS with complaints of Syncope. rn 16:08 The patient has experienced syncope. Onset: The symptoms/episode began/occurred just rn prior to arrival. Duration: This was a single episode. Associated injury: The patient did not suffer any apparent associated injury. Associated signs and symptoms: Pertinent positives:. 16:11 Current symptoms: Currently, the patient is not experiencing any symptoms. The patient rn has experienced similar episodes in the past. The patient has been recently seen by a physician: The patient has been recently been admitted at [facility]. Pt reports at [facility], got lightheaded, passed out, family let him down to ground slowly. Just discharged from this hospital after extensive w/u, and bp meds were held due to low BP during hospitalization. No fever. No chest pain/palpitations. No abd pain/vomiting/diarrhea. Was brief episode, BP was low for EMS, now normal for him and patient denies any new symptoms. . Historical: - Home Meds: 16:03 sertraline 50 mg Oral tab 1 tab once daily [Active]; naltrexone 50 mg Oral tab 1 tab zb once daily [Active]; lactulose 10 gram/15 mL (15 mL) Oral soln 30 mL once daily [Active]; hydroxyzine HCl 25 mg Oral tab 1 tab 3 times per day [Active]; hydrochlorothiazide 12.5 mg Oral cap 1 cap once daily [Active]; folic acid 1 mg Oral tab 1 tab once daily [Active]; ferrous sulfate 325 mg (65 mg iron) Oral tab [Active]; acetaminophen-codeine 300-15 mg Oral tab 1 tab every 4-6 hours [Active]; - PMHx: 16:03 basal cell carcinoma; mesothelioma; zb - PSHx: 16:03 femur sx; arm sx; Tonsillectomy; neck sx; zb - Immunization history:: Adult Immunizations up to date, Client reports receiving the 2nd dose of the Covid vaccine, Client reports receiving the 1st dose of the Covid vaccine. - Social history:: Smoking status: Patient denies any tobacco usage or history of. - Family history:: not pertinent. - Hospitalizations: : The patient was recently seen at [facility]. ROS: 16:11 Constitutional: Negative for fever, chills, and weight loss, Eyes: Negative for injury, rn pain, redness, and discharge, Neck: Negative for injury, pain, and swelling, Cardiovascular: Negative for chest pain, palpitations, and edema, Respiratory: Negative for shortness of breath, cough, wheezing, and pleuritic chest pain, Abdomen/GI: Negative for abdominal pain, nausea, vomiting, diarrhea, and constipation, Back: Negative for injury and pain, : Negative for injury, bleeding, discharge, and swelling, MS/Extremity: Negative for injury and deformity, Skin: Negative for injury, rash, and discoloration, Neuro: Negative for headache, weakness, numbness, tingling, and seizure. Exam: 16:11 Constitutional: This is a well developed, well nourished patient who is awake, alert, rn and in no acute distress. Head/Face: Normocephalic, atraumatic. Eyes: Periorbital areas with no swelling, redness, or edema. ENT: dry MM Neck: No Meningismus. Chest/axilla: Normal chest wall appearance and motion. Nontender with no deformity. No lesions are appreciated. Cardiovascular: Regular rate and rhythm. No pulse deficits. Respiratory: No increased work of breathing, no retractions or nasal flaring. Abdomen/GI: soft, non-tender Skin: Warm, dry, no rash or cellulitis MS/ Extremity: Pulses equal, no cyanosis. Neuro: Awake and alert, GCS 15, oriented to person, place, time, and situation. Cranial nerves II-XII grossly intact. Motor strength 4/5 in all extremities. Sensory grossly intact. Cerebellar exam normal 16:17 ECG was reviewed by the Attending Physician. rn Vital Signs: 15:58 BP 106 / 73; Pulse 91; Resp 18; Pulse Ox 98% on R/A; Weight 72.57 kg; Height 5 ft. 10 zb in. (177.80 cm); Pain 0/10; 16:07 Temp 98.4(O); zb 17:08 BP 110 / 80; Pulse 91; Resp 16; Pulse Ox 95% on R/A; zb 18:17 BP 128 / 75; Pulse 85; Resp 16; Pulse Ox 98% on R/A; zb 19:00 BP 128 / 75; Pulse 88; Resp 16; Pulse Ox 96% on R/A; zb 20:29 BP 115 / 70; Pulse 113; Resp 18; Pulse Ox 98% on R/A; zb 15:58 Body Mass Index 22.96 (72.57 kg, 177.80 cm) zb MDM: 15:56 Patient medically screened. rn 16:15 ED course: Hospital records obtained and reviewed, MRI neck and head neg for acute rn abnormality, ECHO and carotid doppler neg, venous dopplers neg, xrays neg. . 17:29 Differential Diagnosis: cardiac arrhythmia, idiopathic syncope, vasovagal episode, etoh rn intoxication, dehydration, electrolyte disorder. Data reviewed: vital signs, nurses notes, old medical records, lab test result(s), EKG, and as a result, I will discharge patient. Counseling: I had a detailed discussion with the patient and/or guardian regarding: the historical points, exam findings, and any diagnostic results supporting the discharge/admit diagnosis, lab results, the need for outpatient follow up, to return to the emergency department if symptoms worsen or persist or if there are any questions or concerns that arise at home. Response to treatment: the patient's symptoms have markedly improved after treatment, the patient's condition has returned to base line, the patient is now symptom free, and as a result, I will discharge patient. 03/17 16:03 Order name: BMP rn 03/17 16:06 Order name: ETOH Level; Complete Time: 17: rn 03/17 16:07 Order name: Magnesium rn 03/17 16:08 Order name: Magnesium; Complete Time: 17:23 EDMS 03/17 16:00 Order name: EKG - Nurse/Tech; Complete Time: 16: rn 03/17 16:00 Order name: EKG; Complete Time: 16: rn 03/17 16:03 Order name: IV Start; Complete Time: 16: rn EC:17 Rate is 91 beats/min. Rhythm is regular. QRS Roberta is Normal. CT interval is normal. QRS rn interval is normal. QT interval is normal. No Q waves. T waves are Normal. No ST changes noted. Clinical impression: Normal ECG. Interpreted by me. Reviewed by me. Administered Medications: 16:35 Drug: NS 0.9% 500 ml Route: IV; Rate: bolus; Site: right forearm; zb 17:35 Follow up: Response: No adverse reaction; Marked relief of symptoms; IV Status: zb Completed infusion; IV Intake: 500ml 18:05 Drug: Magnesium Sulfate 1 grams Route: IVPB; Infused Over: 1 hrs; Site: right forearm; zb 19:16 Follow up: Response: No adverse reaction; IV Status: Completed infusion; IV Intake: zb 100ml 19:15 Drug: Potassium Chloride 10 mEq Route: IV; Rate: calculated rate; Site: right forearm; zb 21:00 Follow up: Response: No adverse reaction; IV Status: Completed infusion; IV Intake: 50mlzb Disposition: 03/17/21 17:30 Discharged to Home. Impression: Syncope and collapse, Hypokalemia, Hypomagnesemia. - Condition is Stable. - Discharge Instructions: Hypomagnesemia, Syncope, Alcohol Abuse and Nutrition, Hypokalemia. - Medication Reconciliation Form, Thank You Letter, Antibiotic Education, Prescription Opioid Use form. - Follow up: Private Physician; When: As needed; Reason: Recheck today's complaints, Re-evaluation by your physician. - Problem is new. - Symptoms have improved. Signatures: Dispatcher [employer] EDMS Dave Lazcano MD MD rn Brown, DEMETRIA Andrews RN Corrections: (The following items were deleted from the chart) 20:55 17:30 03/17/2021 17:30 Discharged to Home. Impression: Syncope and collapse; zb Hypokalemia; Hypomagnesemia. Condition is Stable. Forms are Medication Reconciliation Form, Thank You Letter, Antibiotic Education, Prescription Opioid Use. Follow up: Private Physician; When: As needed; Reason: Recheck today's complaints, Re-evaluation by your physician. Problem is new. Symptoms have improved. rn
--- NOTE | 2021-03-17 17:31 | ER ---
Nurse's Notes [facility] Name: Hank Musa Age: 60 yrs Sex: Male : 1960 Arrival Date: 03/17/2021 Time: 15:54 Bed 13 Private MD: Diagnosis: Syncope and collapse;Hypokalemia;Hypomagnesemia Presentation: 03/17 15:58 Chief complaint: Patient states: patient was at a family reunion outside. started to zb fill wobbly and shakey. family members noticed. patient was lowered to the ground. +LOC for about 1 min. blood pressure was 88/50 for ambulance on arrival currently 107/64. no c/o of pain. Coronavirus screen: At this time, the client does not indicate any symptoms associated with coronavirus-19. Ebola Screen: No symptoms or risks identified at this time. Initial Sepsis Screen: Does the patient meet any 2 criteria? No. Patient's initial sepsis screen is negative. Does the patient have a suspected source of infection? No. Patient's initial sepsis screen is negative. Risk Assessment: Do you want to hurt yourself or someone else? Patient reports no desire to harm self or others. Onset of symptoms was March 17, 2021. Care prior to arrival: Medication(s) given: Normal saline infusion, 500 mL, IV initiated. 20 GA, in the right forearm. 15:58 Acuity: TIRSO 3 zb 15:58 Method Of Arrival: EMS: [facility] [place] Triage Assessment: 16:05 General: Appears in no apparent distress. comfortable, Behavior is calm, cooperative, zb appropriate for age. Pain: Denies pain. EENT: No deficits noted. Neuro: Level of Consciousness is awake, alert, obeys commands, Oriented to person, place, time, situation, Speech is normal, Intact Reports a syncopal episode. Cardiovascular: Capillary refill < 3 seconds Patient's skin is warm and dry. Respiratory: Airway is patent Respiratory effort is even, unlabored, Respiratory pattern is regular, symmetrical. GI: Abdomen is round. Derm: Skin is fragile, is thin, Skin is pink, warm \T\ dry. Musculoskeletal: Range of motion: limited in left shoulder. Historical: - Home Meds: 16:03 sertraline 50 mg Oral tab 1 tab once daily [Active]; naltrexone 50 mg Oral tab 1 tab zb once daily [Active]; lactulose 10 gram/15 mL (15 mL) Oral soln 30 mL once daily [Active]; hydroxyzine HCl 25 mg Oral tab 1 tab 3 times per day [Active]; hydrochlorothiazide 12.5 mg Oral cap 1 cap once daily [Active]; folic acid 1 mg Oral tab 1 tab once daily [Active]; ferrous sulfate 325 mg (65 mg iron) Oral tab [Active]; acetaminophen-codeine 300-15 mg Oral tab 1 tab every 4-6 hours [Active]; - PMHx: 16:03 basal cell carcinoma; mesothelioma; zb - PSHx: 16:03 femur sx; arm sx; Tonsillectomy; neck sx; zb - Immunization history:: Adult Immunizations up to date, Client reports receiving the 2nd dose of the Covid vaccine, Client reports receiving the 1st dose of the Covid vaccine. - Social history:: Smoking status: Patient denies any tobacco usage or history of. - Family history:: not pertinent. - Hospitalizations: : The patient was recently seen at [facility]. Screenin:04 Abuse screen: Denies threats or abuse. Denies injuries from another. Nutritional zb screening: No deficits noted. Tuberculosis screening: No symptoms or risk factors identified. Fall Risk Fall in past 12 months (25 points). Secondary diagnosis (15 points) syncope . IV access (20 points). Ambulatory Aid- Crutches/Cane/Walker (15 pts). Gait- Weak (10 pts.). Mental Status- Oriented to own ability (0 pts). Total Ibarra Fall Scale indicates High Risk Score (45 or more points). Fall prevention measures have been instituted. Side Rails Up X 2 Placed Close to Nursing Station Frequent Obs/Assessments Occuring. Assessment: 16:05 Reassessment: See triage assessment. zb 17:07 Reassessment: Patient appears in no apparent distress at this time. Patient and/or zb family updated on plan of care and expected duration. Pain level reassessed. Patient is alert, oriented x 3, equal unlabored respirations, skin warm/dry/pink. 17:08 Cardiovascular: Rhythm is regular. zb 18:30 Reassessment: Patient appears in no apparent distress at this time. Patient and/or zb family updated on plan of care and expected duration. Pain level reassessed. Patient is alert, oriented x 3, equal unlabored respirations, skin warm/dry/pink. D/C pending completion of IV medication. 19:30 Reassessment: Patient appears in no apparent distress at this time. Patient and/or zb family updated on plan of care and expected duration. Pain level reassessed. Patient is alert, oriented x 3, equal unlabored respirations, skin warm/dry/pink. D/C pending completion of IV medication. 20:28 Reassessment: d/c pending completion of IV medication. Reassessment: Patient appears in zb no apparent distress at this time. Patient and/or family updated on plan of care and expected duration. Pain level reassessed. Patient is alert, oriented x 3, equal unlabored respirations, skin warm/dry/pink. Vital Signs: 15:58 BP 106 / 73; Pulse 91; Resp 18; Pulse Ox 98% on R/A; Weight 72.57 kg; Height 5 ft. 10 zb in. (177.80 cm); Pain 0/10; 16:07 Temp 98.4(O); zb 17:08 BP 110 / 80; Pulse 91; Resp 16; Pulse Ox 95% on R/A; zb 18:17 BP 128 / 75; Pulse 85; Resp 16; Pulse Ox 98% on R/A; zb 19:00 BP 128 / 75; Pulse 88; Resp 16; Pulse Ox 96% on R/A; zb 20:29 BP 115 / 70; Pulse 113; Resp 18; Pulse Ox 98% on R/A; zb 15:58 Body Mass Index 22.96 (72.57 kg, 177.80 cm) zb ED Course: 15:54 Patient arrived in ED. am2 15:56 Dave Lazcano MD is Attending Physician. rn 15:58 Juliana Nava RN is Primary Nurse. zb 16:02 Triage completed. zb 16:05 Arm band placed on. zb 16:06 Patient has correct armband on for positive identification. Bed in low position. Call zb light in reach. monitoring engineer on. Pulse ox on. NIBP on. Door closed. Noise minimized. 17:00 Maintain EMS IV. Dressing intact. Good blood return noted. Site clean \T\ dry. Gauge \T\ zb site: 20G . 17:08 No provider procedures requiring assistance completed. zb 20:54 IV discontinued, intact, bleeding controlled, No redness/swelling at site. Pressure zb dressing applied. Administered Medications: 16:35 Drug: NS 0.9% 500 ml Route: IV; Rate: bolus; Site: right forearm; zb 17:35 Follow up: Response: No adverse reaction; Marked relief of symptoms; IV Status: zb Completed infusion; IV Intake: 500ml 18:05 Drug: Magnesium Sulfate 1 grams Route: IVPB; Infused Over: 1 hrs; Site: right forearm; zb 19:16 Follow up: Response: No adverse reaction; IV Status: Completed infusion; IV Intake: zb 100ml 19:15 Drug: Potassium Chloride 10 mEq Route: IV; Rate: calculated rate; Site: right forearm; zb 21:00 Follow up: Response: No adverse reaction; IV Status: Completed infusion; IV Intake: 50mlzb Intake: 17:35 IV: 500ml; Total: 500ml. zb 19:16 IV: 100ml; Total: 600ml. zb Outcome: 17:30 Discharge ordered by . rn 20:54 Discharged to home via wheelchair, with family. zb 20:54 Condition: stable 20:54 Discharge instructions given to patient, family, Instructed on discharge instructions, follow up and referral plans. Demonstrated understanding of instructions, follow-up care. 20:55 Patient left the ED. zb Signatures: Dave Lazcano MD MD rn Moreno, Amanda am2 Brown, Zipporah, RN RN zb Corrections: (The following items were deleted from the chart) 19:16 18:05 Magnesium Sulfate 1 grams IVPB in left antecubital over 1 hrs zb zb
[2021-03-17] MEDS ORDERED: NA CHLORIDE 0.9% 100 ML ONE (18:13)
[2021-03-17] MEDS ORDERED: MAGNESIUM SULFATE 1 gm IVPB 1 GM/100 ML BAG IV ONE (18:13)
[2021-03-17] MEDS ORDERED: KCL 20 MEQ/100 mL IVPB 20 MEQ/100 ML BAG IV ONE (18:14)
[2021-03-17 21:16] VITALS: TEMP 98.4
[2021-03-17 21:21] VITALS: BP 115/70; O2SAT 98
== END 2021-03-17 20:55 | disposition home or self-care (01) ==
LOC: ER 15:54
DX: E87.6 Hypokalemia (principal); E83.42 Hypomagnesemia
CPT/HCPCS: 36415; 80048; 80320; 83735; 93005; 96361; 96365; 96366; 99284; J3475; J3480; J7040